=== PATIENT | female | born 1975 | race Caucasian/White ===

== ENCOUNTER 2023-06-23 11:12 | Emergency (ER) | payer BC, SELFPAY ==
[2023-06-23 11:17] VITALS: BP 125/90; PULSE 87; RESP 16; TEMP 37.1; O2SAT 98; BMI 23.5
--- NOTE | 2023-06-23 11:46 | ED.GENADULT ---
HPI - General Adult General Chief complaint: Fever Stated complaint: numbness in L arm Time Seen by Provider: 06/23/23 11:14 History of Present Illness HPI narrative: This 47-year-old female comes in reporting generalized body aches and pains with nasal congestion and cough. Her symptoms started 3 or 4 days ago. She also has had some lightheadedness today and states that she was standing at the bathroom sink and became lightheaded and had brief black coat experience but states that she did not fall or hurt herself. She arrives here with normal vital signs and does not have any ongoing lightheadedness. She does have some generalized tingling and reports anxiety with regard to these symptoms. She states that she does smoke cigarettes but otherwise is in good health. Related Data Previous Rx's Medication Instructions Recorded tramadol 50 mg tablet 50 mg PO Q6H PRN pain #15 tabs 06/23/23 Allergies Allergy/AdvReac Type Severity Reaction Status Date / Time No Known Drug Allergies Allergy Verified 06/23/23 11:16 Review of Systems Status of ROS: Reports: 10 or more systems reviewed and unremarkable except as noted in History and below Narrative: Constitutional: No fevers, no weight gain or loss. Eyes: No discharge. No vision changes. HENT: No ear pain. Cardiovascular: No chest pain, no palpitations. Respiratory: No shortness of breath, no wheezes. She reports a cough. Gastrointestinal: No abdominal pain, no vomiting, no diarrhea. Genitourinary: No dysuria, no hematuria. Musculoskeletal: Normal range of motion. Skin: No rashes, no pruritis. Neurological: No dizziness, weakness, sensory change, speech change. Endo/Heme/Allergies: No bruising or bleeding. No polydipsia. Pysch: no suicidality, no anxiety, no insomnia. All other systems reviewed and are negative. PFSH PFSH Social History Smoking Status: Current every day smoker What tobacco products do you use: cigarettes Smoking packs per day: 0.2 Smoking cigarettes per day: 4.0 How often do you have a drink containing alcohol: never AUDIT-C Alcohol total score: 0 Non-prescribed substance use: denies use Exam Narrative: Exam Narrative: Constitutional: Well-developed, well-nourished, no acute distress. HEENT: Normocephalic, atraumatic. Neck: Normal range of motion. Nontender. Supple. Heart: Regular. No murmurs. Normal rate. Intact distal pulses. Lungs: Clear to auscultation. No chest discomfort. No wheezes, rhonchi, or rales. Abdomen: Normal bowel sounds. Nontender. No rebound tenderness. Genitalia: Deferred. Back: No midline tenderness. Normal range of motion. Extremities: Normal range of motion. No injury. Skin: Intact. No rash. Warm. No erythema or pallor. Neurologic: No altered sensation. No weakness. Alert and oriented. Psychiatric: No suicidality. No anxiety or depression. No insomnia. Nursing notes and vitals signs are reviewed. Const: Vital Signs, click to edit/add: Vital Signs - 24 hr 06/23/23 11:17 Temperature 98.7 F Pulse Rate [Pulse Oximeter] 87 Respiratory Rate 16 Blood Pressure [Ri ght Upper Arm] 125/90 H Pulse Oximetry 98 Oxygen Delivery Me thod Room Air Course Vital Signs Vital signs: Initial Vital Signs Temperature 98.7 F 06/23/23 11:17 Temperature Source Temporal Artery Scan 06/23/23 11:17 Pulse Rate 87 06/23/23 11:17 Respiratory Rate 16 06/23/23 11:17 Blood Pressure 125/90 H 06/23/23 11:17 Blood Pressure Mean 101 06/23/23 11:17 Blood Pressure Position Sitting 06/23/23 11:17 Pulse Oximetry 98 06/23/23 11:17 Oxygen Delivery Method Room Air 06/23/23 11:17 Vital Signs Temperature 98.7 F 06/23/23 11:17 Pulse Rate 87 06/23/23 11:17 Respiratory Rate 16 06/23/23 11:17 Blood Pressure 125/90 H 06/23/23 11:17 Pulse Oximetry 98 06/23/23 11:17 Oxygen Delivery Method Room Air 06/23/23 11:17 Temperature 98.7 F 06/23/23 11:17 Pulse Rate 87 06/23/23 11:17 Respiratory Rate 16 06/23/23 11:17 Blood Pressure 125/90 H 06/23/23 11:17 Pulse Oximetry 98 06/23/23 11:17 Oxygen Delivery Method Room Air 06/23/23 11:17 Medical Decision Making MDM Narrative Medical decision making narrative: This patient comes in with upper respiratory symptoms typical of influenza and nasal pharyngeal swab does confirm positive influenza results. COVID and RSV and strep test are all negative. Other lab results also are reassuring. The patient is outside the window of time where Tamiflu is indicated. She did receive a prescription for tramadol for symptomatic relief. She is encouraged to stop smoking. Lab Data Labs: Lab Results 06/23/23 06/23/23 Range/Units 11:30 12:09 WBC 5.07 (4.50-11.00) K/uL RBC 4.29 (4.00-5.20) m/uL Hgb 14.0 (12.0-16.0) gm/dL Hct 41.1 (33.0-51.0) % MCV 96 (80-100) fL MCH 33 (26-34) pg MCHC 34 (32-36) gm/dL RDW Coeff of [place] 12.3 (11.5-15.5) % Plt Count 224 (140-440) K/uL Neut % (Auto) 57.1 (42.0-72.0) % Lymph % (Auto) 31.6 (20-44) % Rich % (Auto) 9.1 (0.0-11.0) % Eos % (Auto) 2.0 (0.0-7.0) % Baso % (Auto) 0.2 (0.0-3.0) % Neut # (Auto) 2.90 (1.7-7.0) K/uL Lymph # (Auto) 1.60 (0.90-2.90) K/uL Rich # (Auto) 0.50 (0.00-0.90) K/UL Eos # (Auto) 0.10 (0.00-0.50) K/uL Baso # (Auto) 0.01 (0.00-0.30) K/uL Abs Immat Gran (auto) 0.00 (0.00-0.30) K/uL Imm/Tot Granulo (auto) 0.0 % SARS-CoV-2 (PCR) Negative SARS-CoV-2 (Negative) Influenza Type A (PCR) POSITIVE PCR FLU A A (Negative) Influenza Type B (PCR) Negative PCR FLU B (Negative) RSV (PCR) Negative PCR RSV (Negative) Group A Strep DNA NOT DETECTED (Not Detectd) POC Troponin I 0.00 L (0.01-0.04) ng/ml ECG Data Attestation: I personally reviewed and interpreted this ECG as follows: Interpretation: Normal sinus rhythm. Rate is 74 beats per minute. There are no ST or T-wave abnormalities. Discharge Plan Discharge Clinical Impression: Influenza Patient Disposition: Home, Self-Care Condition: Stable Additional Instructions: Take medication as prescribed and needed. Follow up with MD return if worsening. Prescriptions: New tramadol 50 mg tablet 50 mg PO Q6H PRN (Reason: pain) Qty: 15 0RF Follow Up/Referrals: Maribel White, JAH, ROAD TEST EXAMINER [Primary Care Provider] - Stand Alone Forms: [employer] (formerly [employer])ealth Info Instructions
[2023-06-23 12:11] LABS: Strep A DNA Probe* NOT DETECTED (Not Detectd)
[2023-06-23 12:16] LABS: Basophils Absolute Auto 0.01 K/uL (0.00-0.30); Basophils Percent Auto 0.2 % (0.0-3.0); Hematocrit 41.1 % (33.0-51.0); Lymphocytes Percent Auto 31.6 % (20-44); Mean Corpuscular HGB Conc 34 gm/dL (32-36); Mean Corpuscular Hemoglobin 33 pg (26-34); Mean Corpuscular Volume 96 fL (80-100); Monocytes Percent Auto 9.1 % (0.0-11.0); Neutrophils Percent Auto 57.1 % (42.0-72.0); Platelet Count* 224 K/uL (140-440); RDW Coefficient of Variation % 12.3 % (11.5-15.5); Red Blood Count 4.29 m/uL (4.00-5.20); White Blood Count* 5.07 K/uL (4.50-11.00)
[2023-06-23 12:21] LABS: Slide Review Reflex No
[2023-06-23 12:27] LABS: PCR FLU A POSITIVE PCR FLU A (Negative); PCR FLU B Negative PCR FLU B (Negative); PCR RSV Negative PCR RSV (Negative); SARS PCR* Negative SARS-CoV-2 (Negative)
--- OUTSIDE RECORDS SUMMARY | 2023-06-23 12:28 | XMS_ITS | Clinical Summary ---
Author Name Unknown Organization [facility] Address [address] [place] [address] Care Team Providers Care Used Car Make Ready Worker Name Role Phone Maribel White APRN, CNP Primary Care Prov ider Source Comments You are receiving this document as you are listed as the primary care provider,follow-up provider, or the patient has been referred to you for consultation.This is in compliance with the Medicare and[employer] EHR Incentive Program,which states Providers who transition their patient to another setting of careor provider of care or refers their patient to another provider of care shouldprovide summary care record for each transition of care or referral. [facility] Allergies No known active allergies Medications Medication Sig Dispensed Refills Start Date End Date Status escitalopram oxalate (LEXAPRO) 20 MG tablet Take 20 mg by mouth daily. 0 01/13/2021 Active omeprazole (PRILOSEC) 40 MG capsule TAKE ONE CAPSULE BY MOUTH EVERY 24 HOURS AT BEDTIME 0 01/13/2021 Active Cholecalciferol (VITAMIN D3 OR) daily. 0 Active magnesium oxide (MAG-OX) 400 MG tablet Take 400 mg by mouth daily. 0 Active HYDROcodone-acetamino phen (NORCO) 5-325 MG tabletIndications:Fem hieu pelvic pain Take 1 Tablet by mouth every 6 hours as needed for Pain. for pain 10 Tablet 0 02/02/2021 Active Social History Tobacco Use Types Packs/Day Years Used Date Smoking Tobacco: Former Cigarettes Smokeless Tobacco: Never Comments:occ Alcohol Use Standard Drinks/Week Comments Yes 0 (1 standard drink = 0.6 oz pur e alcohol) occ Sex and Gender Information Value Date Recorded Sex Assigned at Not on file Gender Identity Not on file Sexual Orientation Not on file Last Filed Vital Signs Vital Sign Reading Time Taken Comments Blood Pressure 116/80 02/02/2021 10:12 AM CDT Pulse - - Temperature - - Respiratory Rate - - Oxygen Saturation - - Inhaled Oxygen Concentration - - Weight 70.1 kg (154 lb 9.6 oz) 02/02/2021 10:12 AM CDT Height - - Body Mass Index - - Plan of Treatment Health Maintenance Due Date Last Done Comments Cervical Cancer Screening Due 1973 Colon Cancer Screening Plan Due 1973 Hep C Screening (Preventive Services) 1973 HepB (1) 1973 COVID-19 Vaccine (#1) 03/21/1974 HIV Screening (Preventive Services) 1989 Adult Preventive Visit 09/19/1991 Cholesterol 2018 Influenza (#1) 2023 Zoster/Shingles (1 of 2) 09/19/2023 DTaP/Tdap/Td (2 - Tdap) 01/13/2031 01/13/2021 HepA Aged Out No longer eligi ble based on patient's age to complete this topic Hib Aged Out No longer eligi ble based on patient's age to complete this topic IPV (Polio) Aged Out No longer eligi ble based on patient's age to complete this topic MCV4 Aged Out No longer eligi ble based on patient's age to complete this topic Pneumococcal Aged Out No longer eligi ble based on patient's age to complete this topic Care Teams Used Car Make Ready Worker Relationship Specialty Start Date End Date Maribel White, RUG DYER, UNIFORMS SALES REPRESENTATIVE [address] [place] [address] PCP - General Nurse Practitioner 02/02/21
--- OUTSIDE RECORDS SUMMARY | 2023-06-23 12:28 | XMS_ITS | Clinical Summary ---
Author Name Unknown Organization [facility] Address [address] [place] [id number] Care Team Providers Care Waterproofer Helper Name Role Phone Unavailable Primary Care Provider Unavailabl e Social History Tobacco Use Types Packs/Day Years Used Date Smoking Tobacco: Never Assessed Adolescent Education Answer Date Record ed Getting School Help Needed Not on file 02/05 Sex and Gender Information Value Date Recorded Sex Assigned at Not on file Gender Identity Not on file Sexual Orientation Not on file Plan of Treatment Health Maintenance Due Date Last Done Comments ADVANCE CARE PLANNING 1973 ANNUAL REVIEW OF HM ORDERS 1973 CT COLONOGRAPHY 1973 FIT 1973 FLEX SIG 1973 HEPATITIS B IMMUNIZATION (1 of 3 - 3-dose series) 1973 MAMMO SCREENING 1973 sDNA (Cologuard) 1973 COVID-19 Vaccine (#1) 03/21/1974 COLONOSCOPY 09/19/1983 COLORECTAL CANCER SCREENING 09/19/1983 HIV SCREENING 1988 HEPATITIS C SCREENING 09/19/1991 PAP 1994 DTAP/TDAP/TD IMMUNIZATION (1 - Tdap) 1998 LIPID 2018 YEARLY PREVENTIVE VISIT 02/03/2021 02/04/2020 INFLUENZA VACCINE (#1) 2023 PHQ-2 (once per calendar year) 2023 ZOSTER IMMUNIZATION (1 of 2) 09/19/2023 HPV IMMUNIZATION Aged Out No longer e ligible based on patient's age to complete this topic IPV IMMUNIZATION Aged Out No longer e ligible based on patient's age to complete this topic MENINGITIS IMMUNIZATION Aged Out No l onger eligible based on patient's age to complete this topic Pneumococcal Vaccine: Pediat rics (0 to 5 Years) and At-Risk Patients (6 to 64 Years) Aged Out No longer eligi ble based on patient's age to complete this topic RSV MONOCLONAL ANTIBODY Aged Out No l onger eligible based on patient's age to complete this topic
--- OUTSIDE RECORDS SUMMARY | 2023-06-23 12:28 | XMS_ITS | Referral Summary ---
Author Name Unknown Organization [facility] Address [address] [place], [place] [id number] Care Team Providers Care Cable Television Access Coordinator Name Role Phone Unavailable Primary Care Provider Unavailabl e Social History Tobacco Use Types Packs/Day Years Used Date Smoking Tobacco: Never Assessed Adolescent Education Answer Date Record ed Getting School Help Needed Not on file 02/05 Sex and Gender Information Value Date Recorded Sex Assigned at Not on file Gender Identity Not on file Sexual Orientation Not on file Plan of Treatment Not on file
--- OUTSIDE RECORDS SUMMARY | 2023-06-23 12:28 | XMS_ITS | Clinical Summary ---
Author Name Unknown Organization [facility] Address [place], [place] [address] Care Team Providers Care Checkerer Hand Name Role Phone White, Maribel Morena COMPUTER CUSTOMER SUPPORT SPECIALIST Primary Care Provider [phone] Allergies No known active allergies Medications Medication Sig Dispensed Refills Start Date End Date Status acetaminophen (TYLENOL) 325 mg tablet Take 1-2 Tablets (325-650 mg) by mouth every 4 hours if needed (mild pain). Max acetaminophen dose: 4000mg in 24 hrs. 100 Tablet 0 02/19/2021 Active ibuprofen (ADVIL; MOTRIN) 200 mg tablet Take 2-4 Tablets (400-800 mg) by mouth every 6 hours if needed for Pain (mild pain). 100 Tablet 0 02/19/2021 Active escitalopram oxalate (LEXAPRO) 20 mg tabletIndications :Generalized anxiety disorder Take 1 Tablet (20 mg) by mouth at bedtime. 90 Tablet 1 12/16/2021 Active Active Problems Problem Noted Date Diagnosed Date Subserous leiomyoma of uterus 02/19/2021 Pelvic pain 02/18/2021 Ovarian mass, left 02/17/2021 Immunizations Name Administration Dates Next Due Tdap 01/13/2021 Social History Tobacco Use Types Packs/Day Years Used Date Smoking Tobacco: Some Days Cigarettes Smokeless Tobacco: Never Tobacco Cessation:Ready to Q uit: No; Counseling Given: Yes Alcohol Use Standard Drinks/Week Comments Yes 0 (1 standard drink = 0.6 oz pur e alcohol) occasional PHQ-2 Answer Date Recorded PHQ-2 TOTAL SCORE 0 12/16/2021 Social Connections Answer Date Recorded Frequency of Communication with Friends and Fami ly Not on file 05/16/2021 Financial Resource Strain Answer Date R ecorded Difficulty of Paying Living Expenses Not on file 05/16/2021 Difficulty of Paying Living Expenses Not on file 05/16/2021 Sex and Gender Information Value Date Recorded Sex Assigned at Not on file Gender Identity Not on file Sexual Orientation Not on file Obstetrics History Last Filed Vital Signs Vital Sign Reading Time Taken Comments Blood Pressure 120/70 12/16/2021 3:24 PM CDT Pulse 72 12/16/2021 3:24 PM CDT Temperature 36.7 ??C (98.1 ??F) 03/27/2021 7:30 AM CS T Respiratory Rate 15 03/27/2021 7:30 AM SUPERVISOR PHOSPHORUS PROCESSING Oxygen Saturation 99% 03/27/2021 7:30 AM SUPERVISOR PHOSPHORUS PROCESSING Inhaled Oxygen Concentration - - Weight 78.9 kg (174 lb) 12/16/2021 3:24 PM CDT Height 172.7 cm (5' 8) 12/16/2021 3:24 PM CDT Body Mass Index 26.46 12/16/2021 3:24 PM CDT Plan of Treatment Health Maintenance Due Date Last Done Comments COVID-19 vaccine series (#1) 03/21/1974 Pneumococcal series for age 6-64 (1 of 2 - PCV) 09/19/1979 HIV for age 15-65 1988 Pap test for age 21-65 05/16/2021 7 (Completed outside of [facility]) Mammogram for age 45-75 09/10/2022 09/11/19 22, 05/16/2019 (Completed outside of [facility]) BMI (ht and wt on same day) for age 18+ 12/16/2022 12/16/2021, 03/27/2021, 02/17/2021, Additional history exists Depression screening for age 12+ 12/18/2022 12/18/2021, 12/16/2021, 01/16/2021, Additional history exists Influenza for age 9-49 01/14/2023 Colonoscopy through age 75 08/14/202608/14, 08/14/2021, 08/14/2021 (Completed outside of [facility]) Lipids for age 45-75 12/16/2026 12/16/2021 Tetanus booster 01/13/2031 01/13/2021 Tdap Completed 01/13/2021 Hepatitis C screening for ag e 18-79 Completed 12/16/2021 Advance Directives Latest Code Status on File Code Status Date Activated Date Inactivated Comments Full Code 02/19/2021 8:34 AM 02/19/2021 4:01 PM Question Answer Comments Code Status Discussion: Discussed Care Teams Checkerer Hand Relationship Specialty [place] [address] [place] [address] PCP - General Nurse Practitioner 02/17/21
[2023-06-23 12:53] LABS: Chloride* 102 mmol/L (96-114); Potassium* 4.9 mmol/L (3.6-5.1); Sodium* 136 mmol/L (135-149)
[2023-06-23 12:56] LABS: Anion Gap 7 mEq/L (7-15); Blood Urea Nitrogen* 13 mg/dL (5-24); Carbon Dioxide* 27 mmol/L (20-32); Creatinine* 0.8 mg/dL (0.5-1.5); Est. Creatinine Clearance* 82.72; Estimated Glomerular Filt Rate 90 ml/min
[2023-06-23 12:57] LABS: Glucose* 102 mg/dL (60-115)
[2023-06-23 13:02] VITALS: PULSE 87; O2SAT 97
== END 2023-06-23 13:03 | disposition home or self-care (01) ==
PROVIDERS: Emergency Provider Emergency Medicine Emergency Medical Services; PCP Nurse Practitioner Family
DX: J10.1 Influenza due to other identified influenza virus with other respiratory manifestations (principal)
CPT/HCPCS: 36415; 80048; 84484; 85025; 87631; 87651; 93005; 99284

== ENCOUNTER 2024-04-02 08:23 | Outpatient (CLI) | payer BC, SELFPAY ==
--- OUTSIDE RECORDS SUMMARY | 2024-04-02 08:27 | XMS_ITS | Clinical Summary ---
Author Organization [facility] Address [place], [place] [address] Care Team Providers Care Stove Installer Name Role Phone Maribel White NP Primary Care Provider [phone] Allergies No known active allergies Medications Medication Sig Dispensed Refills Start Date End Date Status acetaminophen (TYLENOL) 325 mg tablet Take 1-2 Tablets (325-650 mg) by mouth every 4 hours if needed (mild pain). Max acetaminophen dose: 4000mg in 24 hrs. 100 Tablet 02/19/2021 Active varenicline (CHANTIX) 1 mg tabletIndications: Cigarette nicotine dependence without complication Take 1 mg by mouth two times daily with meals. 112 Tablet 02/23/2024 Active varenicline (CHANTIX DOSEPAK) 0.5 mg (11)- 1 mg (42) tabletIndications: Cigarette nicotine dependence without complication Days 1-3 take 0.5mg once daily; Days 4-7 take 0.5mg twice daily; then increase to 1mg twice daily. Take with meals. 1 Packet 02/23/2024 Active Active Problems Problem Noted Date Diagnosed Date Subserous leiomyoma of uterus 02/19/2021 Pelvic pain 02/18/2021 Ovarian mass, left 02/17/2021 Encounters Date Type Department Care Team Description 03/05/2024 Telephone [facility] [address] [place] [address] Maribel White NP orders 02/23/2024 10:00 AM CDT Office Visit [facility] [address] [place] [address] Maribel White, KELLY Breast Problem (Biopsy done 2 years ago in [place]. Burning sensation and pain in Left breast. ); Medication Management (Would like a new prescription for Chantix starter pack and future doses) 02/23/2024 Travel from Last 3 Months Immunizations Name Administration Dates Next Due Tdap 01/13/2021 Social History Tobacco Use Types Packs/Day Years Used Date Smoking Tobacco: Every Day Cigarettes Passive Smoke Exposure: Current Smokeless Tobacco: Never Tobacco Cessation:Ready to Q uit: Not Asked; Counseling Given: Not Answered Alcohol Use Standard Drinks/Week Comments Yes 0 (1 standard drink = 0.6 oz pur e alcohol) occasional PHQ-2 Answer Date Recorded PHQ-2 TOTAL SCORE 0 06/29/2023 Financial Resource Strain Answer Date R ecorded Difficulty of Paying Living Expenses Not on file 05/16/2021 Difficulty of Paying Living Expenses Not on file 05/16/2021 Sex and Gender Information Value Date Recorded Sex Assigned at Not on file Gender Identity Not on file Sexual Orientation Not on file Obstetrics History Last Filed Vital Signs Vital Sign Reading Time Taken Comments Blood Pressure 104/76 02/23/2024 9:59 AM CDT Pulse 74 02/23/2024 9:59 AM CDT Temperature 36.6 ??C (97.9 ??F) 02/23/2024 9:59 AM CD T Respiratory Rate 15 03/27/2021 7:30 AM LINE MAINTENANCE Oxygen Saturation 94% 02/23/2024 9:59 AM CDT Inhaled Oxygen Concentration - - Weight 72.9 kg (160 lb 12.8 oz) 02/23/2024 9:59 AM CDT Height 170.2 cm (5' 7) 06/29/2023 9:43 AM LINE MAINTENANCE Body Mass Index 25.18 06/29/2023 9:43 AM LINE MAINTENANCE Plan of Treatment Health Maintenance Due Date Last Done Comments Pneumococcal series for age 6-64 (1 of 2 - PCV) 09/19/1979 HIV for age 15-65 1988 Pap test for age 21-65 05/16/2021 7 (Completed outside of [facility]) Mammogram for age 45-75 09/10/2022 09/11/19 22, 05/16/2019 (Completed outside of [facility]) Zoster (shingles) series for age 50+ (1 of 2) 09/19/2023 COVID-19 vaccine series ( season) 2024 Influenza for age 50-64 01/15/2024 BMI (ht and wt on same day) for age 18+ 06/29/2024 06/29/2023, 12/16/2021, 03/27/2021, Additional history exists Depression screening for age 12+ 06/29/2024 06/29/2023, 12/18/2021, 12/16/2021, Additional history exists Colonoscopy through age 75 08/14/202608/14, 08/14/2021, 08/14/2021 (Completed outside of [facility]) Lipids for age 45-75 12/16/2026 12/16/2021 Tetanus booster 01/13/2031 01/13/2021 Tdap Completed 01/13/2021 Hepatitis C screening for ag e 18-79 Completed 12/16/2021 Procedures Procedure Name Priority Date/Time Associated Diagnosis Comments ANTI HCV Routine 12/16/2021 3:57 PM CDT Encounter for hepatitis C screening test for low risk patient LIPID PANEL W REFLEX MEASURED LDL Routine 12/16/2021 3:57 PM CDT Lipid screening SCAN-MAMMOGRAPHY REPORT 09/10/2021 12:00 AM CDT SCAN-COLONOSCOPY 08/14/2021 12:0 0 AM CDT from Last 3 Months or Most Recently Relevant to Health Maintenance Results * LIPID PANEL W REFLEX MEASURED LDL (12/16/2021 3:57 PM CDT) Pathologist [facility] CHOLESTEROL,TOTAL 189 100 - 199 mg/dL 12/17/2021 4:12 PM CDT [facility] TRIGLYCERIDES 102 <150 mg/dL 12/17/2021 4:12 PM CDT [facility] HDL CHOLESTEROL 67 >40 mg/dL 4:12 PM CDT [facility] NON-HDL CHOLESTEROL 122 <145 mg/dl 12/17/2021 4:12 PM CDT [facility] CHOL/HDL RATIO 2.82 <4.50 12/17/2021 4:12 PM CDT [facility] LDL CHOLESTEROL 102 <=130 mg/dL 12/17/2021 4:12 PM CDT [facility] VLDL CHOLESTEROL 20 <=30 mg/dL 12/17/2021 4:12 PM CDT [facility] PROVIDER ORDERED STATUS RANDOM 12/17/2021 4:12 PM CDT [facility] Blood BLOOD SPECIMEN / Unknown Venipuncture / Unknown 12/16/2021 3:57 PM CDT 12/16/2021 3:57 PM CDT Maribel White NP CHEMISTRY [facility] [address] [place] [address], * ANTI HCV (12/16/2021 3:57 PM CDT) HEPATITIS C ANTIBODY Non-React justino Non-React justino 12/17/2021 3:13 PM CDT [facility] Comment:Antibodies to HCV no t detected; does not exclude the possibility of exposure to HCV. Blood BLOOD SPECIMEN / Unknown Venipuncture / Unknown 12/16/2021 3:57 PM CDT 12/16/2021 3:57 PM CDT Maribel White DATA MANAGEMENT ASSOCIATE SEND OUTS [facility] [address] [place] [address], * SCAN-MAMMOGRAPHY REPORT (09/10/2021 12:00 AM CDT) Anatomical Region Laterality Modality Other Scanner OTHER * SCAN-COLONOSCOPY (08/14/2021 12:00 AM CDT) Scanner OTHER from Last 3 Months or Most Recently Relevant to Health Maintenance Advance Directives * Full Code (Latest Code Status on File) Date Activated Date Inactivated Comments 02/19/2021 8:34 AM 02/19/2021 4:01 PM Question Answer Comments Code Status Discussion: Discussed Care Teams Stove Installer Relationship Specialty [place] [address] [place] [address] PCP - General Nurse Practitioner 02/17/21
--- OUTSIDE RECORDS SUMMARY | 2024-04-02 08:27 | XMS_ITS | Clinical Summary ---
Author Organization [facility] Address [address] [place] [address] Care Team Providers Care Breakfast Bar Attendant Name Role Phone Maribel White APRN, CNP Primary Care Prov ider Source Comments You are receiving this document as you are listed as the primary care provider,follow-up provider, or the patient has been referred to you for consultation.This is in compliance with the Medicare and[facility] Incentive Program,which states Providers who transition their patient to another setting of careor provider of care or refers their patient to another provider of care shouldprovide summary care record for each transition of care or referral. [facility] Allergies No known active allergies Medications Medication Sig Dispensed Refills Start Date End Date Status escitalopram oxalate (LEXAPRO) 20 MG tablet Take 20 mg by mouth daily. 01/13/2021 Active omeprazole (PRILOSEC) 40 MG capsule TAKE ONE CAPSULE BY MOUTH EVERY 24 HOURS AT BEDTIME 01/13/2021 Active Cholecalciferol (VITAMIN D3 OR) daily. Active magnesium oxide (MAG-OX) 400 MG tablet Take 400 mg by mouth daily. Active HYDROcodone-acetamino phen (NORCO) 5-325 MG tabletIndications:Fem hieu pelvic pain Take 1 Tablet by mouth every 6 hours as needed for Pain. for pain 10 Tablet 02/02/2021 Active Social History Tobacco Use Types [...] 1973 Hep C Screening (Preventive Services) 1973 Mammogram 1973 HIV Screening (Preventive Services) 1989 Adult Preventive Visit 09/19/1991 HepB (1) 1992 Cholesterol 2018 Zoster/Shingles (1 of 2) 09/19/2023 COVID-19 Vaccine (1 - 2023-2 5 season) 2024 Influenza (#1) 2024 DTaP/Tdap/Td (2 - Tdap) 01/13/2031 01/13/2021 HepA Aged Out No longer eligi ble based on patient's age to complete this topic Hib Aged Out No longer eligi ble based on patient's age to complete this topic IPV (Polio) Aged Out No longer eligi ble based on patient's age to complete this topic RSV Aged Out No longer eligi ble based on patient's age to complete this topic MCV4 Aged Out No longer eligi ble based on patient's age to complete this topic Pneumococcal Aged Out No longer eligi ble based on patient's age to complete this topic Care Teams Breakfast Bar Attendant Relationship Specialty Start Date End Date Maribel White, TELLER, PUMPER GAGER APPRENTICE [id number] [place] [address] PCP - General Nurse Practitioner 02/02/21
--- OUTSIDE RECORDS SUMMARY | 2024-04-02 08:27 | XMS_ITS | Referral Summary ---
Author Organization [facility] Address [address] [place] [id number] Care Team Providers Care Medical Claims Processor Name Role Phone Unavailable Primary Care Provider Unavailabl e Social History Tobacco Use Types Packs/Day Years Used Date Smoking Tobacco: Never Assessed Adolescent Education Answer Date Record ed Getting School Help Needed Not on file 02/05 Comments Unknown Sex and Gender Information Value Date Recorded Sex Assigned at Not on file Legal Sex Female 2:37 PM CDT Gender Identity Not on file Sexual Orientation Not on file Plan of Treatment Not on file Insurance [facility]
--- OUTSIDE RECORDS SUMMARY | 2024-04-02 08:27 | XMS_ITS | Clinical Summary ---
Author Organization [facility] Address [address] [place] [id number] Care Team Providers Care Miter Operator Name Role Phone Unavailable Primary Care Provider [...] Plan of Treatment Not on file Insurance [facility]
--- NOTE | 2024-04-02 08:45 | CRLHL7_ITS ---
For Patients: As a result of the Century Cures Act, medical imaging exams and procedure reports are released immediately into your electronic medical record. You may view this report before your referring provider. If you have questions, please contact your health care provider. DIGITAL DIAGNOSTIC BILATERAL MAMMOGRAM USING TOMOSYNTHESIS AND COMPUTER-AIDED DETECTION LEFT BREAST ULTRASOUND CLINICAL HISTORY: LEFT breast pain. COMPARISON: 04/23/2020, 03/12/2019. TECHNIQUE: Digital BILATERAL mammogram in four projections with computer-aided detection. Tomosynthesis was used in this interpretation. Real-time ultrasound imaging of LEFT breast with imaging documentation. BREAST COMPOSITION: There are scattered areas of fibroglandular density. FINDINGS: BILATERAL mammogram images demonstrate biopsy clip on the LEFT. Intact bilateral implants. No suspicious masses or architectural distortion. No suspicious calcifications or adenopathy. Targeted LEFT breast ultrasound 12 o`clock 7 cm from the nipple performed. No suspicious mass. No fibrocystic change. IMPRESSION: No suspicious findings. No evidence of malignancy. RECOMMENDATIONS: Routine BILATERAL screening mammography. A lay language report of this examination will be provided to the patient. BI-RADS Category 2: Benign Dictated by Rafy Cheung MD @ 04/02/2024 9:40:28 AM jj/Dictated by: Rafy Cheung MD @ 04/02/2024 9:40:00 AM (Electronically Signed)
--- NOTE | 2024-04-02 09:15 | CRLHL7_ITS ---
For Patients: As a result of the Cures Act, medical imaging exams and procedure reports are released immediately into your electronic medical record. You may view this report before your referring provider. If you have questions, please contact your health care provider. PLEASE SEE DIGITAL DIAGNOSTIC BILATERAL MAMMOGRAM PERFORMED SAME DAY CRL:teo bruce/Dictated by: Rafy Cheung MD @ 04/02/2024 9:40:00 AM (Electronically Signed)
== END 2024-04-02 08:24 | disposition home or self-care (01) ==
LOC: MAMMO 08:24
PROVIDERS: PCP Nurse Practitioner Family; Visit Provider Nurse Practitioner Family
DX: N64.4 Mastodynia (principal)
CPT/HCPCS: 76642; 77066; G0279